=== PATIENT | male | born 1950 | race Caucasian/White ===

== ENCOUNTER 2017-10-28 08:47 | Emergency (ER) | payer MEDICARE, OTHER, SELFPAY | END 2017-10-28 11:32 | disposition home or self-care (01) | PROVIDERS: Emergency Provider Emergency Medicine; Family Provider Family Medicine; PCP Family Medicine; Visit Provider Emergency Medicine | DX: K81.9 Cholecystitis, unspecified (principal) | CPT/HCPCS: 36415; 71010; 71045; 76700; 80053; 83690; 84484; 85025; 93005; 93010; 96374; 99058; 99284; C9113 ==

== ENCOUNTER → 2017-12-07 12:59 | Outpatient (CLI) | payer MEDICARE, OTHER, SELFPAY ==
--- NOTE | 2017-12-07 | DI.MRI.S_ITS ---
PROCEDURE: MR KNEE RT WO CON INDICATIONS: 67 year-old male with chronic right knee pain. Arthroscopic knee surgery 8-10 years ago. TECHNIQUE: [employer] protocol ws performed. Noncontrast sagittal PD fast spin echo and T2 fast spin echo with fat saturation, sagittal 3-D FLASH with fat saturation; coronal T1 spin echo and PD fast spin echo with fat saturation, and axial PD fast spin echo with fat saturation through the knee. COMPARISON: [facility], CR, KNEE SERIES RT, 08/21/2016, 12:04. FINDINGS: Image quality: Excellent. Menisci: There is irregular truncation of the medial meniscal body and posterior horn. Lateral meniscus demonstrates normal morphology and signal. Meniscal root ligaments appear intact. Cruciate ligaments: Anterior cruciate ligament appears intact. There is moderate grade intrasubstance partial thickness tear of the posterior cruciate ligament. Medial structures: The medial collateral ligament appears intact. The posterior oblique ligament, semimembranosus tendon insertions, oblique popliteal ligament, and meniscocapsular junction appear intact. There is signal heterogeneity at the semimembranosus tendon insertional footprint, consistent with tendinopathy. Visualized portions of the pes anserinus tendons appear normal. No abnormal bursal fluid. Lateral structures: The lateral collateral ligament, long and short heads of the biceps femoris tendon appear intact. The popliteus tendon appears normal; there is localized fluid at the popliteus musculotendinous junction. The popliteofibular ligament appears intact. The posterosuperior and anteroinferior popliteomeniscal fascicles appear intact. The arcuate ligament appears intact, just anterior to the lateral inferior geniculate artery. Iliotibial band appears normal. Anterior structures: The quadriceps and patellar tendons appear intact. Patellar alignment is normal. No femoral trochlear dysplasia or ventral trochlear prominence. No edema in the infrapatellar fat pad. Bones and cartilage: No bone marrow contusions or fractures. There is widespread full-thickness cartilage loss involving the weightbearing portion of the medial femoral condyle and medial tibial plateau. The lateral femorotibial compartment cartilage demonstrates normal thickness and signal. Small regions of full-thickness cartilage loss involve the patellar apex and medial patellar facet. Joint space: There is moderate knee joint effusion, as well as moderate unruptured Chris's cyst, measuring up to 5.0 cm in craniocaudal dimensions. No intra-articular bodies. IMPRESSION: 1. Truncation of the medial meniscal body and posterior horn, consistent with remote partial medial meniscectomy and/or degenerative truncation. 2. Moderate grade partial-thickness tear of the posterior cruciate ligament. 3. Distal semimembranosus tendinopathy, without discrete tears. 4. Grade 2 strain at the popliteus musculotendinous junction. 5. Extensive full thickness degenerative chondrosis of the medial femorotibial compartment. 6. Moderate knee joint effusion and moderate unruptured Chris's cyst. Dictated by: Ming Torres M.D. on 12/07/2017 at 14:49 Approved by: Ming Torres M.D. on 12/07/2017 at 15:01
== END ==
PROVIDERS: Family Provider Family Medicine; PCP Family Medicine; Visit Provider Orthopaedic Surgery
DX: M17.11 Unilateral primary osteoarthritis, right knee (principal); S83.521A Sprain of posterior cruciate ligament of right knee, initial encounter; M94.261 Chondromalacia, right knee; M71.21 Synovial cyst of popliteal space [Baker], right knee; M25.561 Pain in right knee
CPT/HCPCS: 73721

== ENCOUNTER → 2018-01-02 16:03 | Outpatient (CLI) | payer MEDICARE, OTHER, SELFPAY ==
[2018-01-02 16:46] LABS: Add Manual Diff / Slide Review NO; Basophils Percent Auto 0.8 % (0-2); Eosinophils Percent Auto 1.8 % (2-4); Hematocrit 48.3 % (41-53); Hemoglobin 16.4 g/dL (13.5-17.5); Lymphocytes Percent Auto 24.6 % (25-40); Mean Corpuscular HGB Conc 33.9 % (30-36); Mean Corpuscular Hemoglobin 29.8 PG (26-34); Mean Corpuscular Volume 88.1 fL (80-100); Monocytes Percent Auto 12.3 % (3-14); Neutrophils Absolute Auto 4300 /uL (3000-5900); Neutrophils Percent Auto 60.5 % (50-75); Platelet Count 231 X10^3/uL (150-400); Red Blood Cell Count 5.48 X10^6/uL (4.5-5.9); Red Cell Distribution Width 13.9 % (11.6-14.8)
[2018-01-02 17:31] LABS: BUN Creatinine Ratio 21.4 (6-22); Blood Urea Nitrogen 15 mg/dL (9-20); Calcium 8.7 mg/dL (8.4-10.2); Carbon Dioxide 28 mmol/L (22-32); Chloride 103 mmol/L (98-107); Estimated Glomerular Filt Rate > 60.0 mL/min (>60); Glucose 99 mg/dL (80-110); HEMOLYSIS < 15 (0-50); Potassium 3.7 mmol/L (3.4-5.1); Sodium 143 mmol/L (137-145)
== END ==
PROVIDERS: Family Provider Family Medicine; PCP Family Medicine; Visit Provider Orthopaedic Surgery
DX: Z01.818 Encounter for other preprocedural examination (principal); Z01.812 Encounter for preprocedural laboratory examination
CPT/HCPCS: 36415; 80048; 85025; 93005

== ENCOUNTER 2018-01-18 08:18 | Observation (INO) | payer MEDICARE, OTHER, SELFPAY ==
[2018-01-08 12:31] VITALS: BMI 30.9
[2018-01-16] VITALS (14 sets, daily range): BP systolic 99–128; BP diastolic 64–79; PULSE 18–77; RESP 12–20; TEMP 36.3–36.9; O2SAT 95–100; BMI 31.8
--- NOTE | 2018-01-16 | DI.RAD.S_ITS ---
PROCEDURE: XR KNEE RT 1TO2V INDICATIONS: POST OP RIGHT KNEE ARTHROPLASTY TECHNIQUE: 2 view(s) of the knee acquired. COMPARISON: None. FINDINGS: Bones: Patient is status post knee joint arthroplasty. Hardware components are in expected positions. Visualized bony structures are intact. Soft tissues: Overlying postoperative changes are noted. IMPRESSION: Normal alignment after right total knee arthroplasty. Dictated by: Ty Torres M.D. on 01/16/2018 at 18:31 Approved by: Ty Torres M.D. on 01/16/2018 at 18:32
--- NOTE | 2018-01-16 10:17 | PM.PREOP ---
Pre-operative Note Interval Note Pre-op Check: History & Physical Reviewed by Physician and Exam Performed
--- NOTE | 2018-01-16 10:19 | P.OP_ITS ---
Operative Date/Time/Diagnoses Date of procedure: 01/16/18 Time of procedure: 17:31 Pre-op diagnosis: Right knee osteoarthritis Procedure & Clinicians Procedure: Right total knee arthroplasty Same procedure as scheduled: Yes Indications: The patient presents today for total knee arthroplasty after failure of conservative treatment. The nature of the procedure including the risks and benefits, alternatives, postoperative course and expected outcome were discussed and all questions answered. Consent was obtained. Operative site confirmed and marked. Surgeon: Fran Belle [employer] Facilities Rental Manager: Cole Alcazar Anesthesia Type: General, Spinal and Local Operative Notes Findings: Severe osteoarthritis with 10 degree flexion contracture. Closure Type: primary Specimen(s): none sent Implants & Drains: V[employer]hew Saul BCS: 7 femoral component, 7 tibial component, 9 mm BCS polyethylene tray and 35 x 9 mm round patella Applied: implant(s) Estimated Blood Loss (mL): 100 Blood products transfused: none Tourniquet time (min): 25 Procedure in detail: The patient was taken to the operative suite and placed under general and spinal anesthesia. The patient was given prophylactic antibiotics prior to surgery. The patient was also given tranexamic acid, 1 g, just prior to surgery for postoperative hemostasis. [The lateral knee was prepped and the joint injected with 20 mL of 1% Lidocaine with epinephrine. ] The knee was then prepped and draped in usual sterile fashion. The leg was exsanguinated with an Esmarch dressing and the tourniquet raised to [250] torr. A 15 cm anterior incision was made. Next a medial trivector arthrotomy was made. The extensor mechanism was marked to ensure accurate repair. Initial exposing dissection was carried out medially and laterally. The knee was then extended and the patellar thickness was measured and a cut made removing approximately [9] mm of bone[ with a goal of restoring normal patellar thickness ]. The patella was then sized and drilled. Some excess lateral bone was excised and the patellofemoral ligament released. The tourniquet was then released. The knee was then flexed and the [employer] femoral guide was placed. The anterior pins were placed and the distal rotation holes drilled. The distal cutting guide was placed and the templated distal femoral cut was made. A +2 distal femoral cut was then made given his pre-existing flexion contracture. The templating cutting block was then placed and the anterior, posterior and chamfer cuts made. The [employer] tibial guide was placed and the alignment checked along the axis of the proximal tibial with a mateo. The proximal tibial cut was then made with an oscillating saw. All meniscus and bony debris was then removed. Flexion extension gaps were checked. The knee was somewhat tight medially especially in extension. This was corrected with percutaneous release of the mcl with an 18 gauge needle as well as routine osteophyte removal. The soft tissues were then injected with a combination of [20 mL of half percent Marcaine with epinephrine and 20 mL of Exparel]. The trial components were then placed. The knee went into full extension and flexion beyond 120?. There was [excellent] medial- lateral balance throughout motion. Patellar tracking was [excellent]. The trial components were removed and size is confirmed for the final implants. The knee was then exsanguinated with an Esmarch dressing and the tourniquet reapplied for cementing. The knee was cleansed with Pulsavac irrigation and dried. The final components were cemented in with high viscosity vacuum mixed bone cement with antibiotics. The knee was held in extension and the patellar clamp until the cement had adequately cured. The knee was then irrigated with dilute Betadine solution. The extensor mechanism was closed with 5 interrupted #1 Vicryl sutures in 90 degrees of flexion. [The joint was then injected with a combination of 1 g of tranexamic acid and 20 mL of quarter percent Marcaine with epinephrine.] The subcutaneous tissue was closed with 2-0 Vicryl. The skin was closed with [ jameson and surgical adhesive]. [ An Aquacell] dressing and Amilcar wrap were then applied. Complications: none Condition: stable Disposition: PACU Plan for aftercare: Pending sale to [facility] protocol for total knee arthroplasty. Aspirin for DVT prophylaxis.
[2018-01-16] MEDS: CELECOXIB 200 MG CAPSULE 400 MG PO (11:39)
[2018-01-16] MEDS: LACTATED RINGERS 1,000 ML 42 ML IV (11:40)
[2018-01-16] MEDS: CEFAZOLIN 2 GM/100 ML FROZ.PIGGY IV ×2 (15:53→22:30)
--- NOTE | 2018-01-16 16:34 | SUR.OPER ---
Supine on padded OR bed. Pillow under head, arms secured on padded armboards <90 degree abduction. Safety belt across torso. Non-operative leg secured with tape over blanket over lower leg. Operative leg secured in DeMayo/Remy positioner. Foam padded brace at thigh of operative leg.
[2018-01-16] MEDS: BUPIVACAINE 0.5% W/ EPI (PF) 20 ML, BUPIVACAINE LIPOSOME 266 MG, SODIUM CHLORIDE 0.9% 2... INJ (16:40)
[2018-01-16] MEDS: BUPIVACAINE 0.5% (PF) 10 ML, TRANEXAMIC ACID 1,000 MG, SODIUM CHLORIDE 0.9% 20 ML INJ (16:41)
[2018-01-16] MEDS: ACETAMINOPHEN 325 MG TABLET 650 MG PO (20:00)
--- NOTE | 2018-01-16 20:02 | PC.NURSE ---
Addendum entered by Rowan Pettit R.N. 01/16/18 22:49: 2255- 4hrs after surgery, bladder scanned for 500mL urine. Pt is not uncomfortable nor feels the need to urinate, but understands if he does not urinate by 8hrs, straight in/out catheter procedure will take place. Original Note: Addendum entered by Rowan Pettit R.N. 01/16/18 22:24: 2100- Admin pt's chlorthalidone 25mg at this time, reports this is usual time, not 0900. Denies pain. Tolerating full diet and many crackers, denies nausea. 97% RA. Original Note: 1900- Pt arrived to room 220 from PACU via bed. A/O x4. Right TKA, aquacell/citlali wrap CDI, denies pain at this time. 99-100% RA, continuous pulse ox on, I. S. one breath 4000, and continuing to use 10 x Q1hr. BT active/hypo, denies nausea. Tolerating clears at this time, continuing to advance PRN. C+/M+/S+ sensation with some numbness to right LE. Wiggle toes/ankle waves/ strength symmetric. Using urinal until PT tomorrow. Right hand SL at this time. , Jaclyn, rooming in. Call light in reach and bed alarm on.
[2018-01-16] MEDS: METOPROLOL 12.5 MG TABLET PO (21:39)
[2018-01-16] MEDS: ASPIRIN EC 81 MG TABLET PO (21:40)
[2018-01-16] MEDS: CHLORTHALIDONE 25 MG TABLET 12.5 MG PO ×2 (21:41→21:42)
[2018-01-17] VITALS (8 sets, daily range): BP systolic 108–131; BP diastolic 64–69; PULSE 63–77; RESP 16–20; TEMP 36.2–37.8; O2SAT 95–99
[2018-01-17] MEDS: BUTORPHANOL 1 MG/ML VIAL 0.5 MG IV (01:57)
[2018-01-17] MEDS: ACETAMINOPHEN 325 MG TABLET 650 MG PO ×5 (01:58→23:29)
[2018-01-17 06:14] LABS: Hematocrit 43.6 % (41-53); Hemoglobin 14.6 g/dL (13.5-17.5)
--- NOTE | 2018-01-17 07:34 | PM.PNPO.1 ---
Subjective Date Patient Seen: 01/17/18 Time Patient Seen: 07:34 Interval history: Patient postop day 1 status post right total knee arthroplasty. Pain is mild. No fever chills. No nausea vomiting. Had catheter last night unable to void this morning with urinal. We will try again later today. Has not had physical therapy. Would like to go home with safe to do so. Exam Vital Signs (past 8 hours): - 01/16/18 23:54 01/17/18 03:43 Temperature 97.6 F 97.8 F Pulse Rate 67 63 Respiratory Rate 18 18 Blood Pressure 113/65 108/66 Pulse Oximetry 97 97 Oxygen Delivery Method Room Air Oxygen Flow Rate 0 Narrative Exam Narrative: Pleasant 59-year-old male resting comfortably in bed in no apparent distress. Right knee dressing clean, dry and intact. Neurovascular status is intact to the distal right lower extremity. Objective Labs Result Diagrams: 01/17/18 05:37 Labs: Laboratory Results - last 24 hr 01/17/18 05:37 Hgb 14.6 Hct 43.6 Assessment & Plan Post-op Postoperative Procedures Operation Date: 01/16/18 13:45 Actual Procedures Side Surgeon p Total Knee Arthroplasty Right Fran Belle MD Postop day 1 status post right total knee arthroplasty. Patient progressing as expected. Mobilize with physical therapy. Likely discharge home later today. Time Spent With Patient less than 15 minutes Quality VTE Deep Vein Thrombosis/Pulmonary Embolism Present on Admission: No
[2018-01-17] MEDS: CEFAZOLIN 2 GM/100 ML FROZ.PIGGY IV (09:15)
[2018-01-17] MEDS: OXYCODONE IR 5 MG TABLET 15 MG PO ×2 (09:15→13:52)
[2018-01-17] MEDS: METOPROLOL 12.5 MG TABLET PO ×2 (09:16→20:17)
[2018-01-17] MEDS: SENNOSIDES 8.6 MG TABLET PO (09:16)
[2018-01-17] MEDS: ASPIRIN EC 81 MG TABLET PO ×2 (09:16→20:13)
[2018-01-17] MEDS: ROSUVASTATIN 10 MG TABLET 5 MG PO ×2 (09:16→20:25)
--- NOTE | 2018-01-17 09:52 | PT.IIE ---
Current Diagnoses Unilateral primary osteoarthritis, right knee (01/16/18) Surgery Performed Operation Date: 01/16/18 13:45 Actual Procedures p Total Knee Arthroplasty(Right) - Fran Belle MD Surgical History (Last Updated 01/08/18 @ 13:30 by Emma Serrano, RN) H/O knee surgery (Acute) History of carpal tunnel release (Acute) History of esophagogastroduodenoscopy (EGD) (Acute) History of vasectomy (Acute) Hx of cholecystectomy (Acute) S/P CABG x 3 (Acute ~2015) S/P trigger finger release (Acute) Medical History (Last Updated 01/08/18 @ 13:29 by Emma Serrano, RN) Anal fissure (Acute) Arthritis (Acute) At risk for Mycobacterium chimaera infection associated with extracorporeal circulatory equipment (Acute) Chronic anticoagulation (Acute) Constipation (Acute) GERD (gastroesophageal reflux disease) (Acute) Hepatic cyst (Acute) History of TIA (transient ischemic attack) (Acute ~2016) History of bronchitis (Acute) History of cholecystitis (Acute) History of coronary atherosclerosis (Acute) History of pneumonia (Acute) Hyperlipidemia (Acute) Hypertension (Acute) Impaired vision (Acute) Knee pain (Acute) Numbness (Acute) Renal cyst (Acute) Shortness of breath (Acute) Sleep apnea (Acute) Physical Therapy Inpatient Evaluation/Re-Eval M1 PT/OT-IP Prior Functional Status Start: 01/17/18 12:22 Freq: NEEDED Status: Active Protocol: Document 01/17/18 09:52 AB (Rec: 01/17/18 12:34 AB [id number]) Medical Review Prior Functional Status Medical History Reviewed Yes Communication able to make needs known Mobility and Gait pt stated that he is independent with all mobilities and ambulation without AD but occasionally uses SPC. Social History Household Members spouse Living Arrangements House Number of Floors (Floors) Two Floors Number of Stairs To Enter/Railing? pt will stay on main level; has 4 steps to enter with bilateral wide rails and pt usually just use L rail ascending. Home Environment Walk in Shower Built-In Shower Seat Home Equipment Front Wheel Walker Straight Cane Raised Toilet Seat Without Armrests Shower Seat with Backrest Employment Status Retired M2 PT-IP Current Condition Start: 01/17/18 12:22 Freq: NEEDED Status: Active Protocol: Document 01/17/18 09:52 AB (Rec: 01/17/18 12:34 AB [id number]) Physical Therapy Current Condition Current Condition Evaluation Date 01/17/18 Treatment Diagnosis s/p R TKA Onset Date 01/16/18 Weight Bearing Status Weight Bearing Status Weight Bear as Tolerated M3 PT-IP Subjective Start: 01/17/18 12:22 Freq: NEEDED Status: Active Protocol: Document 01/17/18 09:52 AB (Rec: 01/17/18 12:34 AB [id number]) Subjective Physical Therapy Visit Type Type Initial Evaluation Visit Start Time 09:52 Visit Stop Time 10:55 Total Visit Minutes 63 Number of ASSOCIATE PROFESSOR OF BIOLOGY Visits 0 Physical Therapy Visit Comments Patient Comments pt agreeable to do therapy Therapy Pain Assessment Pain When Pain Assessed At Rest Pain Present Pain Present Pain Reported Location Right Knee Intensity 2 Scale Used Numeric (1 - 10) Pain Management Techniques Apply Cold Timing of Activity with Medications M4 PT-IP Mobility and Gait Start: 01/17/18 12:22 Freq: NEEDED Status: Active Protocol: Document 01/17/18 09:52 AB (Rec: 01/17/18 12:34 AB [id number]) PT-Bed Mobility Assessment Supine to Sit Supine to Sit Standby Assistance PT-Transfer Assessment Sit to and From Stand Sit to and from Stand Standby Assistance Equipment Transfer Assistive Device Gait Belt Front Wheeled Walker Orthotic/Prosthetic Devices or Brace: No Transfers Transfer Destination Bed Transfer Technique Stand Step Pivot Transfer Ability Level of Assist Standby Assistance Contact Guard Assistance Gait Assessment Gait Gait Assistance Required: Standby Assistance Contact Guard Assist Distance (Feet) (feet) 75 Able to Maintain Weight Bearing Status Yes During Gait Assistive Devices Assistive Device Gait Belt Front Wheeled Walker Gait Deviations General Gait Pattern Antalgic Factors Limiting Gait Function Factors Limiting Gait Function Decreased Activity Tolerance Decreased Strength Limited Range of Motion Pain Comments Gait Comments pt ambulated in room using FWW SBA to CGA ~ 40 ft and was able to ambulate in hallway using FWW ~ 75 ft SBA to occasional CGA. spouse educated on how to assist pt. Stair Climbing Assessment Evaluation Level of Assist On Stairs Contact Guard Assistance Minimal Assistance Devices Stair Climbing Assistive Devices Left Railing Technique/Endurance Stair Climbing Direction Ascend and Descend Stair Climbing Technique Step to Step Number of Steps Climbed 3 Query Text: Stair Climbing Set # Repetitions (reps) 2 Comments Stair Climbing Comments pt completed up/down steps using bilateral rails CGA. assessed stair climbing using L rail and pt required CGA ascending but required min A with descending. caregiver training conducted with spouse to assist pt with stairs. PT-Balance Assessment Sitting Balance and Reactions Static Sitting Balance Ability Good Dynamic Sitting Balance Ability Good Standing Balance and Reactions Static Standing Balance Ability Fair Dynamic Standing Balance Ability Fair Device Used FWW M5 PT-IP Objective Assessments Start: 01/17/18 12:22 Freq: NEEDED Status: Active Protocol: Document 01/17/18 09:52 AB (Rec: 01/17/18 12:34 AB [id number]) Orientation Orientation/Cognition Level of Alertness Alert Orientation Name Age Birthday Month Date Year Day of Week Place Situation Safety Awareness Understands Safety Issues Memory Description No Deficits Noted Gross Range of Motion Lower Extremity ROM Assessment Right Impaired Strength Lower Extremity Strength Assessment Right Impaired Knee 4-/5 Muscle Tone Muscle Tone WNL Yes M6 PT-IP Treatment Start: 01/17/18 12:22 Freq: NEEDED Status: Active Protocol: Document 01/17/18 09:52 AB (Rec: 01/17/18 12:34 AB [id number]) Physical Therapy Treatment Education Education Provided Precautions Weight Bearing Status Post-Op Packet Safety M7 PT-IP Assessment and Plan Start: 01/17/18 12:22 Freq: NEEDED Status: Active Protocol: Document 01/17/18 09:52 AB (Rec: 01/17/18 12:34 AB [id number]) PT Summary Assessment and Plan Potential Rehabilitation Potential Good Status of Condition at Evaluation Stable Summary Impairments Pain ROM Strength Balance Coordination Sensation Tone Cognition Bed Mobility Transfers Gait Activity Tolerance Assessment Summary pt requring one person assist with mobility and spouse will assist pt at home. caregiver training conducted and spouse was able to safely assist pt. pt may go home when medically stable. Goals Bed Mobility Goal Independent Transfer Goal Independent Gait Goal Independent Gait Distance 150 Other Goals up/down 4 steps using L rail ascending SBA Days to Meet Goals 3 Frequency of Treatment Frequency Of Treatment Twice a Day Treatment Plan Physical Therapy Treatment Plan Bed Mobility Training Transfer Training Gait Training Therapeutic Exercise Balance Retraining Post Op Education Discharge Planning Hot or Cold Pack Neuromuscular Re-ed Coordination Retraining Manual Therapy Recommendations To Nursing Amount of Assist Needed Standby Assistance Discharge Recommendations PT Discharge Recommendations Home with Assistance Outpatient PT
--- NOTE | 2018-01-17 14:02 | PC.NURSE ---
day shift pt denied pain this AM, did alert staff when pain up to a 2/10 and was medicated with 1 oxy per pt request. Able to work with PT with some pain. Later in afternoon pt requested 10 mg oxy which was provided. He then stated he needed additional bowel meds, awaiting call back from PA. pt was unable to urinate this AM. Bladder scan around 1120 was [address] Pepper per his 's recommendation as she states that always helps you get started. pt was able to urinate 175 ml around 1230. PVR was 480 ml. Pt and did not feel comfortable d/c tonight, notified PA and d/c order cancelled. pt will stay here tonight and go home tomorrow. hourly rounding provided, call light within reach.
--- NOTE | 2018-01-17 14:37 | CM.DANOTE ---
Patient is a 67 year old male who was admitted on 01/16/18 for Surgery. Pt has MCR and COMM for insurance and his PCP is Dr. Hernandes. EMR was reviewed. Per Ortho PA, pt may be stable for d/c home today pending his current urinary retention and progress with PT. SW met bedside with pt and spouse and explained role and pt confirmed that he lives on [place] with his spouse and is Independent with ADL's at baseline and drives. 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 Pt preference is to d/c home with support but states that he is still having urinary retention and worried about discharging back to the [facility] tonight and having issues with voiding and requests to stay tonight and d/c in the morning. SW updated RN who contacted the PA and cancelled discharge for today with plan of d/c in the morning. SW updated PT and they will work with pt again this afternoon. Plan: SW to follow for likely pt d/c home via spouse POV and [employer] pending urinary retention is resolved. TOÑO Cole Discharge Planning/Care Management CM Discharge Assessment Start: 01/17/18 14:35 Freq: Status: Active Protocol: Document 01/17/18 14:35 BF (Rec: 01/17/18 14:37 BF [id number]) Discharge Planning Assessment Assigned Telecommunications Field Technician TOÑO History Provided By Patient Significant Other Medical Record Has Patient been admitted in last 30 No days? Is this patient on Medicare? Yes Is the admit diagnosis the same? Yes Prior Living Arrangements House Household Members spouse Type of transporation used prior to Drives own vehicle admit Independent with ADL's Yes Is patient alert and oriented? Yes Caregiver for Another No Community Services Needed at Discharge Physical Therapy Referrals Initiated None needed Comment Home with spouse assist and outpt PT Discharge Plan Home Transportation Arrangement Spouse bedside and to provide transport back to [facility] Review Status In Process Next Review Type Discharge Review
--- NOTE | 2018-01-17 15:30 | PT.IPTN ---
Current Diagnoses Unilateral primary osteoarthritis, right knee (01/16/18) Surgery Performed Operation Date: 01/16/18 13:45 Actual Procedures p Total Knee Arthroplasty(Right) - Fran Belle MD Physical Therapy Treatment Note M2 PT-IP Current Condition Start: 01/17/18 12:22 Freq: NEEDED Status: Active Protocol: Document 01/17/18 09:52 AB (Rec: 01/17/18 12:34 AB [id number]) Physical Therapy Current Condition Current Condition Evaluation Date 01/17/18 Treatment Diagnosis s/p R TKA Onset Date 01/16/18 Weight Bearing Status Weight Bearing Status Weight Bear as Tolerated M3 PT-IP Subjective Start: 01/17/18 12:22 Freq: NEEDED Status: Active Protocol: Document 01/17/18 15:30 AB (Rec: 01/17/18 16:29 AB [id number]) Subjective Physical Therapy Visit Type Type Treatment Note Visit Start Time 15:30 Visit Stop Time 15:56 Total Visit Minutes 26 Number of MATERIAL CONTROL CLERK Visits 0 Physical Therapy Visit Comments Patient Comments pt agreeable to do therapy Therapy Pain Assessment Pain When Pain Assessed At Rest Pain Present Pain Present Pain Reported Location Right Knee Intensity 5 Scale Used Numeric (1 - 10) Description Tightness Pain Management Techniques Apply Cold Re-positioning Timing of Activity with Medications M4 PT-IP Mobility and Gait Start: 01/17/18 12:22 Freq: NEEDED Status: Active Protocol: Document 01/17/18 15:30 AB (Rec: 01/17/18 16:29 AB [id number]) PT-Bed Mobility Assessment Supine to Sit Supine to Sit Standby Assistance Sit to Supine Sit to Supine Standby Assistance PT-Transfer Assessment Sit to and From Stand Sit to and from Stand Contact Guard Assistance Equipment Transfer Assistive Device Gait Belt Front Wheeled Walker Orthotic/Prosthetic Devices or Brace: No Comments Mobility Comments pt requested to use the toilet after hallway ambulation. pt ambulated to the toilet using FWW SBA to CGA and was able to complete toileting supervision for safety. pt used grab bar for support. pt ambulated from the toilet towards the sink using FWW SBA to CGA and was able to maintain standing SBA while completing handwashing. Gait Assessment Gait Gait Assistance Required: Standby Assistance Contact Guard Assist Distance (Feet) (feet) 100 Able to Maintain Weight Bearing Status Yes During Gait Assistive Devices Assistive Device Gait Belt Front Wheeled Walker Orthotic/Prosthetic Devices or Brace: No Gait Deviations General Gait Pattern Antalgic Decreased Stride Length Decreased Feet Clearance Factors Limiting Gait Function Factors Limiting Gait Function Decreased Activity Tolerance Decreased Strength Pain Poor Balance Comments Gait Comments pt c/o increase pain this afternoon affecting mobility M5 PT-IP Objective Assessments Start: 01/17/18 12:22 Freq: NEEDED Status: Active Protocol: Document 01/17/18 09:52 AB (Rec: 01/17/18 12:34 AB [id number]) Orientation Orientation/Cognition Level of Alertness Alert Orientation Name Age Birthday Month Date Year Day of Week Place Situation Safety Awareness Understands Safety Issues Memory Description No Deficits Noted Gross Range of Motion Lower Extremity ROM Assessment Right Impaired Strength Lower Extremity Strength Assessment Right Impaired Knee 4-/5 Muscle Tone Muscle Tone WNL Yes M6 PT-IP Treatment Start: 01/17/18 12:22 Freq: NEEDED Status: Active Protocol: Document 01/17/18 15:30 AB (Rec: 01/17/18 16:29 AB [id number]) Physical Therapy Treatment Exercises Exercises Short Arc Quads Education Education Provided Weight Bearing Status Safety M7 PT-IP Assessment and Plan Start: 01/17/18 12:22 Freq: NEEDED Status: Active Protocol: Document 01/17/18 15:30 AB (Rec: 01/17/18 16:29 AB [id number]) PT Summary Assessment and Plan Potential Rehabilitation Potential Good Summary Impairments Pain ROM Strength Balance Coordination Sensation Tone Cognition Bed Mobility Transfers Gait Activity Tolerance Progress Towards Goals Progressing Toward Goals Assessment Summary pt with increase pain this afternoon requiring increase assistance from SBA to CGA but continues to be safe. pt plans to go home with spouse to assist him. Goals Bed Mobility Goal Independent Transfer Goal Independent Gait Goal Independent Gait Distance 150 Other Goals up/down 4 steps using L rail ascending SBA Days to Meet Goals 3 Frequency of Treatment Frequency Of Treatment Twice a Day Treatment Plan Physical Therapy Treatment Plan Bed Mobility Training Transfer Training Gait Training Therapeutic Exercise Balance Retraining Post Op Education Discharge Planning Hot or Cold Pack Neuromuscular Re-ed Coordination Retraining Manual Therapy Recommendations To Nursing Amount of Assist Needed Standby Assistance Discharge Recommendations PT Discharge Recommendations Home with Assistance Outpatient PT
[2018-01-17] MEDS: OXYCODONE IR 10 MG TABLET PO ×3 (17:07→23:00)
[2018-01-17] MEDS: CHLORTHALIDONE 25 MG TABLET 12.5 MG PO (20:13)
[2018-01-17] MEDS: SENNOSIDES 8.6 MG TABLET 17.2 MG PO (20:18)
[2018-01-17] MEDS: POLYETHYLENE GLYCOL 3350 17 GM POWD.PACK PO (20:22)
[2018-01-18 03:00] VITALS: BP 136/78; PULSE 71; RESP 18; TEMP 36.5; O2SAT 95
[2018-01-18] MEDS: OXYCODONE IR 10 MG TABLET PO (03:05)
[2018-01-18] MEDS: ACETAMINOPHEN 325 MG TABLET 650 MG PO (05:38)
[2018-01-18] MEDS: OXYCODONE IR 5 MG TABLET 15 MG PO ×2 (06:26→10:06)
[2018-01-18 07:45] VITALS: O2SAT 97
[2018-01-18 07:55] VITALS: BP 128/75; PULSE 69; RESP 16; TEMP 36.4; O2SAT 96
--- NOTE | 2018-01-18 07:56 | PM.DS.1 ---
History of Present Illness Date Patient Seen: 01/18/18 Time Patient Seen: 06:33 Chief complaint: [id number] Narrative: Patient seen at bedside status post right total knee postop day 2. Patient doing well, he is now urinating and has been ambulating with physical therapy. His pain is well controlled with narcotics. He is ready to go home. Discharge Providers Date of admission: 01/16/18 11:12 Primary care physician: Nikolas Hernandes MD Consults: 01/16/18 19:04 Consult to Discharge Planning Routine Comment: Consult to Physical Therapy Evaluate & Treat Comment: Physician Instructions: postop TKA protocol Consult to Respiratory Therapy Evaluate & Treat Comment: Physician Instructions: Evaluate and treat Discharge provider: Kaur Vogt PA-C Summary Discharge Diagnosis: Right knee osteoarthritis Hospital Course: Patient admitted to the surgical floor status post right knee replacement on 01/16/18. Patient tolerated the procedure no major complications. Patient was placed on the standard joint replacement pathway and protocol. Patient was seen by Physical therapy who recommended patient be discharged home with outpatient PT. Patient was stable and ready for discharge on 01/18/2018. Status at Discharge Cognitive/behavioral status at discharge: Alert and oriented x3 Functional status at discharge: uses cane/walker Overall status at discharge: patient is progressing back to baseline Time Spent with Patient Less than 30 minutes Exam Vital Signs (past 8 hours): - 01/18/18 03:00 Temperature 97.7 F Pulse Rate 71 Respiratory Rate 18 Blood Pressure 136/78 H Pulse Oximetry 95 Oxygen Delivery Method Room Air Oxygen Flow Rate 0 Narrative Exam Narrative: Patient is well-developed well-nourished in no acute distress. Patient alert oriented x3. On examination of the right knee Aquacel is clean dry and intact. He has a moderate amount of generalized swelling around the joint. No erythema. Calf is soft and compressible. He has full range of motion of the ankle. He is neurovascularly intact in this extremity. Objective Labs Result Diagrams: 01/17/18 05:37 Discharge Plan Discharge Plan Patient Disposition: Home, Self-Care Discharge comment: d/c once cleared by PT Discharge Med Rec/Prescriptions Prescriptions: New aspirin 81 mg Tablet,Delayed Release (Dr/Ec) 81 mg PO BID Qty: 0 RF: 0 oxycodone 10 mg Tablet 5 mg PO Q4H PRN (Reason: Pain, Moderate (4-6)) Qty: 0 RF: 0 Continue lisinopril 20 MG tablet 20 mg PO QDAY Qty: 0 RF: 0 clopidogrel [Plavix] 75 MG tablet 75 mg PO QDAY Qty: 0 RF: 0 sennosides [senna] 8.6 mg Tablet 4 - 6 tab PO DAILY RF: 0 chlorthalidone 25 mg Tablet 12.5 mg PO DAILY RF: 0 coenzyme Q10 100 mg Capsule 200 mg PO DAILY RF: 0 rosuvastatin 5 mg Tablet 5 mg PO DAILY RF: 0 cholecalciferol (vitamin D3) 1,000 unit/drop Drops 1,000 units PO DAILY RF: 0 metoprolol tartrate 25 mg Tablet 12.5 mg PO BID RF: 0 Discontinued aspirin [Aspirin Low Dose] 81 mg Tablet,Delayed Release (Dr/Ec) 81 mg PO DAILY RF: 0 Provider Discharge Instructions Diet: Diet as Tolerated Activity: WBAT, use walker as indicated Cold/Heat Therapy: Ice for 20 minutes every hour Wound Care Report to your healthcare provider any signs of infection, such as:: chills, fever, night sweats, increased pain and unusual drainage Dressing: Keep Aquacel dressing on and intact. May shower with it on, no soaking. Remove Amilcar Wrap post-op day #2 Visit Report/Discharge Packet Instructions: DI for Knee Replacement Stand Alone Forms: Surgery Discharge Visit Report Forms: Stroke Signs & Symptoms Discharge Data Primary Care Provider: Nikolas Hernandes Attending Provider: Fran Belle Admit Date/Time: 01/18/18 08:18 Discharges patient from system. Discharge Date/Time: 01/18/18 10:46 Quality VTE Deep Vein Thrombosis/Pulmonary Embolism Present on Admission: No
--- NOTE | 2018-01-18 09:05 | PT.IPTN ---
Current Diagnoses Unilateral primary osteoarthritis, right knee (01/18/18) Surgery Performed Operation Date: 01/16/18 13:45 Actual Procedures p Total Knee Arthroplasty(Right) - Fran Belle MD Physical Therapy Treatment Note M2 PT-IP Current Condition Start: 01/17/18 12:22 Freq: NEEDED Status: Discharge Protocol: Document 01/17/18 09:52 AB (Rec: 01/17/18 12:34 AB [id number]) Physical Therapy Current Condition Current Condition Evaluation Date 01/17/18 Treatment Diagnosis s/p R TKA Onset Date 01/16/18 Weight Bearing Status Weight Bearing Status Weight Bear as Tolerated M3 PT-IP Subjective Start: 01/17/18 12:22 Freq: NEEDED Status: Discharge Protocol: Document 01/18/18 09:05 AB (Rec: 01/18/18 13:12 AB [id number]) Subjective Physical Therapy Visit Type Type Treatment Note Visit Start Time 09:05 Visit Stop Time 09:50 Total Visit Minutes 45 Number of FOOD SCIENCE PROFESSOR Visits 0 Physical Therapy Visit Comments Patient Comments pt agreeable to do therapy Therapy Pain Assessment Pain When Pain Assessed At Rest Pain Present Pain Present Pain Reported Location Right Knee Intensity 4 Scale Used Numeric (1 - 10) Description Tightness Pain Management Techniques Apply Cold Re-positioning Timing of Activity with Medications M4 PT-IP Mobility and Gait Start: 01/17/18 12:22 Freq: NEEDED Status: Discharge Protocol: Document 01/18/18 09:05 AB (Rec: 01/18/18 13:12 AB [id number]) PT-Bed Mobility Assessment Supine to Sit Supine to Sit Minimal Assistance PT-Transfer Assessment Sit to and From Stand Sit to and from Stand Contact Guard Assistance Comments Mobility Comments careiver training conducted for bed mobility and transfers , use of gait belt Gait Assessment Gait Gait Assistance Required: Contact Guard Assist Distance (Feet) (feet) 75 Able to Maintain Weight Bearing Status Yes During Gait Assistive Devices Assistive Device Gait Belt Front Wheeled Walker Orthotic/Prosthetic Devices or Brace: No Gait Deviations General Gait Pattern Antalgic Decreased Stride Length Decreased Feet Clearance Step-to Gait Factors Limiting Gait Function Factors Limiting Gait Function Decreased Activity Tolerance Decreased Strength Limited Range of Motion Pain Poor Balance Comments Gait Comments caregiver training conducted with spouse on how to assist pt with ambulation Stair Climbing Assessment Evaluation Level of Assist On Stairs Minimal Assistance Moderate Assistance 1 Person Assistance Devices Stair Climbing Assistive Devices Left Railing Technique/Endurance Stair Climbing Direction Ascend and Descend Stair Climbing Technique Step to Step Number of Steps Climbed 3 Query Text: Stair Climbing Set # Repetitions (reps) 4 Comments Stair Climbing Comments caregiver training conducted; pt requiring increase assistance with stair climbing today. spouse was able to assist pt. M5 PT-IP Objective Assessments Start: 01/17/18 12:22 Freq: NEEDED Status: Discharge Protocol: Document 01/17/18 09:52 AB (Rec: 01/17/18 12:34 AB [id number]) Orientation Orientation/Cognition Level of Alertness Alert Orientation Name Age Birthday Month Date Year Day of Week Place Situation Safety Awareness Understands Safety Issues Memory Description No Deficits Noted Gross Range of Motion Lower Extremity ROM Assessment Right Impaired Strength Lower Extremity Strength Assessment Right Impaired Knee 4-/5 Muscle Tone Muscle Tone WNL Yes M6 PT-IP Treatment Start: 01/17/18 12:22 Freq: NEEDED Status: Discharge Protocol: Document 01/18/18 09:05 AB (Rec: 01/18/18 13:12 AB [id number]) Physical Therapy Treatment Exercises Exercises Ankle Pumps Heel Slides Education Education Provided Precautions Weight Bearing Status Post-Op Packet Safety M7 PT-IP Assessment and Plan Start: 01/17/18 12:22 Freq: NEEDED Status: Discharge Protocol: Document 01/18/18 09:05 AB (Rec: 01/18/18 13:12 AB [id number]) PT Summary Assessment and Plan Potential Rehabilitation Potential Fair Summary Impairments Pain ROM Strength Balance Coordination Sensation Tone Cognition Bed Mobility Transfers Gait Activity Tolerance Progress Towards Goals Slow Progress due to Pain Slow Progress due to Activity Tolerance Assessment Summary pt requiring increase assistance today compared to yesterday's but spouse was able to assist pt safely. recommended another person assist with stair climbing aside from pt's spouse for safety and stated that their son will be there when he gets home. Goals Bed Mobility Goal Independent Transfer Goal Independent Gait Goal Independent Gait Distance 150 Other Goals up/down 4 steps using L rail ascending SBA Days to Meet Goals 3 Frequency of Treatment Frequency Of Treatment Twice a Day Treatment Plan Physical Therapy Treatment Plan Bed Mobility Training Transfer Training Gait Training Therapeutic Exercise Balance Retraining Post Op Education Discharge Planning Hot or Cold Pack Neuromuscular Re-ed Coordination Retraining Manual Therapy Recommendations To Nursing Amount of Assist Needed 1 Person Assist
[2018-01-18] MEDS: ASPIRIN EC 81 MG TABLET PO (10:05)
[2018-01-18] MEDS: METOPROLOL 12.5 MG TABLET PO (10:05)
[2018-01-18] MEDS: CLOPIDOGREL 75 MG TABLET PO (10:05)
[2018-01-18] MEDS: SODIUM CHLORIDE 0.9% FLUSH 10 ML IV (10:06)
--- NOTE | 2018-01-18 11:13 | PC.NURSE ---
PRIORITY BOARDING PASS GIVEN FOR [place]. PT DRESSED. IV REMOVED. ALL D/C INSTRUCTIONS GIVEN TO PT AND SPOUSE. PT ESCORTED OUT VIA W/C TO PRIVATE VEHICLE. PT LEFT IN STABLE CONDITION.
== END 2018-01-18 10:46 | disposition home or self-care (01) ==
LOC: AC 08:39 → OR 13:07 → AC 13:13 → OR 13:21
PROVIDERS: Admitting Provider Orthopaedic Surgery; PCP Family Medicine; Visit Provider Orthopaedic Surgery
PROC: 0SRC0JZ Replacement of Right Knee Joint with Synthetic Substitute, Open Approach (ICD-10-PCS; CPT 27447; principal; 2018-01-16 13:45)
DX: M17.11 Unilateral primary osteoarthritis, right knee (principal); I25.10 Atherosclerotic heart disease of native coronary artery without angina pectoris; I10 Essential (primary) hypertension
CPT/HCPCS: 27447; 36415; 73560; 85014; 85018; 94762; 97116; 97161; 97530; C1776; G0378; C9290; J0595; J0690; J2250; J2274; J2704; J3010

== ENCOUNTER → 2019-07-16 10:22 | Outpatient (CLI) | payer MEDICARE, OTHER, SELFPAY ==
[2018-01-16 18:31] VITALS: BMI 31.8
--- NOTE | 2019-07-16 | DI.NM.S_ITS ---
PROCEDURE: NM BONE 3 PHASE RADIOPHARMACEUTICAL: 22.5 mCi Tc-99m MDP IV. INDICATIONS: STATUS POST LEFT TOTAL KNEE TECHNIQUE: Multiple bone scintigrams were obtained after intravenous injection of Tc-99m MDP, including flow, blood pool, and delayed images centered to the region of interest. COMPARISON: [facility], CR, XR KNEE ARTHRITIC SERIES BI, 07/14/2019, 11:25. [facility], CR, XR KNEE RT 1TO2V, 01/16/2018, 17:53. [facility], CR, XR KNEE ARTHRITIC SERIES RT, 02/25/2018, 13:02. FINDINGS: There is mild elevated blood flow, blood pool, and delayed bone scan isotope uptake at the margins of the total right knee arthroplasty, best seen beneath the tibial plateau component. Review of plain film imaging from 07/14/19 raises concern for interval development of bone resorption along the arthroplasty borders to a mild degree. IMPRESSION: The degree of abnormal isotope uptake is relatively mild, but definite. The findings are associated with what appears to be newly visualized bone reabsorption along the borders of the femoral and tibial plateau components of the arthroplasty to a mild degree seen on 07/14/19 when compared to 02/25/18. Overall, loosening of the arthroplastic components is considered the most likely cause for this abnormal bone scan finding, rather than definite infection. Dictated by: Ty Torres M.D. on 07/16/2019 at 16:00 Approved by: Ty Torres M.D. on 07/16/2019 at 16:05
[2019-07-16 12:00] LABS: Add Manual Diff / Slide Review NO; Basophils Absolute Auto 100 /uL (0-100); Basophils Percent Auto 0.7 % (0-2); Eosinophils Absolute Auto 200 /uL (0-450); Eosinophils Percent Auto 2.6 % (2-4); Hematocrit 51.3 % (41-53); Hemoglobin 17.4 g/dL (13.5-17.5); Lymphocytes Absolute Auto 1900 /uL (1100-4500); Lymphocytes Percent Auto 26.9 % (25-40); Mean Corpuscular HGB Conc 33.9 % (30-36); Mean Corpuscular Hemoglobin 29.9 PG (26-34); Monocytes Absolute Auto 800 /uL (0-900); Monocytes Percent Auto 10.9 % (3-14); Neutrophils Absolute Auto 4200 /uL (1500-7000); Neutrophils Percent Auto 58.9 % (50-75); Platelet Count 199 X10^3/uL (150-400); Red Blood Cell Count 5.83 X10^6/uL (4.5-5.9); Red Cell Distribution Width 13.5 % (11.6-14.8); White Blood Cell Count 7.1 X10^3/uL (4.5-11.0)
[2019-07-16 12:23] LABS: Erythrocyte Sedimentation Rate 1 MM/HR (0-15)
[2019-07-16 12:44] LABS: C-Reactive Protein Quant 0.7 mg/dL (<1.0)
== END ==
PROVIDERS: PCP Family Medicine; Visit Provider Orthopaedic Surgery
DX: T84.82XD Fibrosis due to internal orthopedic prosthetic devices, implants and grafts, subsequent encounter (principal); Z96.651 Presence of right artificial knee joint
CPT/HCPCS: 36415; 78315; 85025; 85651; 86140; A9503

== ENCOUNTER → 2023-12-21 16:36 | Outpatient (CLI) | payer MEDICARE, OTHER, SELFPAY ==
[2018-01-16 18:31] VITALS: BMI 31.8
--- NOTE | 2023-12-21 16:39 | DI.MRI.S_ITS ---
PROCEDURE: MR ANKLE RT WO CON INDICATIONS: PERONEAL TENDON TEAR TECHNIQUE: Noncontrast sagittal T1 spin echo and T2 fast spin echo with fat saturation, axial proton density fast spin echo and T2 fast spin echo with fat saturation, coronal T1 spin echo and T2 fast spin echo with fat saturation through the ankle/hindfoot. COMPARISON: [facility], MR, ANKLE WITHOUT CONTRAST, 01/22/2017, 13:03. FINDINGS: Image quality: Excellent. Bones and joints: There is marrow edema involving distal fibular shaft/lateral malleolus adjacent to its articulation with lateral periphery of talus without discrete fracture line. Kuse-ef-mozecpyi midfoot and hindfoot joint osteoarthritic changes are seen more notably involving 5th TMT joint with extensive joint space narrowing, subchondral sclerosis and cystic changes. No acute fracture or dislocation. 3 mm osteochondral injury involving posterior lateral weight-bearing portion of talar dome is seen. 2 mm osteochondral injury involving anterolateral aspect of talar dome. Nonspecific edema involving lateral weight-bearing portion calcaneus is also seen without discrete fracture line. Small amount of tibiotalar and subtalar joint effusion, no loose bodies. Medial structures: The posterior tibialis tendon is thickened near its distal insertion with small amount of fluid distending tendon sheath. flexor digitorum longus, and flexor hallucis longus tendons are intact. The posterior tibial neurovascular bundle appears normal within the tarsal tunnel, without extrinsic mass effect. The deltoid ligament and spring ligament are thickened.. Lateral structures: The anterior talofibular, calcaneofibular, and posterior talofibular ligaments appear thickened with intrasubstance T2 hyperintense signal. More superiorly, the anterior and posterior tibiofibular ligaments appear intact, as is the intermalleolar ligament. The tibiofibular syndesmosis is normal in width at 2 mm or less. The peroneus longus and brevis tendons are markedly thickened with intrasubstance T2 hyperintense signal at the level of lateral malleolus extending to their distal insertions. Marrow edema in adjacent bony peroneal tubercle and retrotrochlear prominence is seen. The sinus tarsi demonstrates normal fatty signal, without edema, fibrosis, or cyst formation. Visualized sinus tarsi components (cervical ligament, interosseous talocalcaneal ligament, roots of the inferior extensor retinaculum) appear normal. Anterior structures: The tibialis anterior, extensor hallucis longus, and extensor digitorum longus tendons appear intact. The dorsal talonavicular ligament appears intact. Posterior and plantar structures: Mildly thickened distal Achilles tendon at its posterior calcaneal insertion is seen. Well-defined plantar calcaneal enthesophyte with thickened medial band of plantar fascia at its plantar calcaneal insertion is seen. No abductor digiti quinti muscle atrophy to suggest Nobles neuropathy. IMPRESSION: 1. Vrrc-gi-dvoqryrr midfoot and hindfoot joint osteoarthritis most notably involving 5th TMT joint as above. No fracture or dislocation. Tiny osteochondral injuries involving talar dome as above. Small joint effusion, no loose bodies. 2. Low-grade tenosynovitis involving posterior tibialis tendon near its distal insertion. 3. Low-grade medial ankle ligament sprain. 4. Low to moderate grade lateral ankle ligament sprain/intrasubstance partial-thickness tear. No full-thickness ligament rupture. 5. Moderate tendinosis involving peroneus tendons at the level of lateral malleolus extending to their distal insertions with adjacent marrow edema involving bony peroneal tubercle and retro trochlear prominence. 6. Distal Achilles tendinosis. No Achilles tendon rupture. Well-defined plantar calcaneal enthesophyte and thickened plantar fascia at its calcaneal insertion suggestive of low-grade plantar fasciitis. Dictated by: Choco Coon M.D. on 12/23/2023 at 14:03 Approved by: Choco Coon M.D. on 12/23/2023 at 14:26
== END ==
PROVIDERS: PCP Family Medicine; Referring Provider Orthopaedic Surgery Foot and Ankle Surgery; Visit Provider Orthopaedic Surgery Foot and Ankle Surgery
DX: S86.311A Strain of muscle(s) and tendon(s) of peroneal muscle group at lower leg level, right leg, initial encounter (principal); S93.492A Sprain of other ligament of left ankle, initial encounter; M19.072 Primary osteoarthritis, left ankle and foot; M25.472 Effusion, left ankle; M65.872 Other synovitis and tenosynovitis, left ankle and foot; M77.32 Calcaneal spur, left foot
CPT/HCPCS: 73721